=== PATIENT | female | born 1940 | race Caucasian/White ===

== ENCOUNTER 2018-08-17 13:21 | Inpatient (IN) ==
--- NOTE | 2018-08-17 14:33 | Diag Imaging Result Doc PS360 ---
EXAM: XRAY PELVIS W/HIP 2-3VW RT HISTORY: FALL, R HIP PAIN TECHNIQUE: Pelvis and right hip, three views COMPARISON: None. FINDINGS: There is a subcapital right femoral neck fracture with compaction and slight angulation. The femoral head remains in the acetabulum. IMPRESSION: Subcapital femoral neck fracture. Electronically signed by Tom Fishman 08/17/2018 2:30 PM
--- NOTE | 2018-08-17 14:56 | EKG Report ---
Test Performed on : 08/17/2018 1:54:58 PM Test Reason : possible ekg changes Blood Pressure : / mmHG Vent. Rate : 069 BPM Atrial Rate : 069 BPM P-R Int : 146 ms QRS Dur : 132 ms QT Int : 442 ms P-R-T Axes : -06 052 -61 degrees QTc Int : 473 ms Normal sinus rhythm. Nonspecific intraventricular block Cannot rule out Septal infarct (cited on or before 26-APR-2013) T wave abnormality, consider inferolateral ischemia Abnormal ECG When compared with ECG of 26-APR-2013 01:55, Significant changes have occurred Unconfirmed Result
--- NOTE | 2018-08-17 15:46 | PROVIDER DOCUMENTATION ---
This chart was entered by Lisa Barry Scribe, acting as scribe for Jeremy Avelar MD. HPI-General Adult - General Chief Complaint: Hip Pain Stated Complaint: fall Time Seen by Provider: 08/17/18 13:30 Source: patient Allergies/Adverse Reactions: Patient Allergies Allergy/AdvReac Type Severity Reaction Status Date / Time aspirin Allergy Severe Unknown Verified 08/17/18 13:27 cefaclor [From Ceclor] Allergy Severe RASH Verified 08/17/18 13:27 cephalexin monohydrate * Allergy Severe RASH Verified 08/17/18 13:27 [From Keflex] clarithromycin [From Biaxin] Allergy Severe RASH Verified 08/17/18 13:27 esomeprazole magnesium * Allergy Severe Unknown Verified 08/17/18 13:27 [From Nexium] levofloxacin [From Levaquin] Allergy Severe RASH Verified 08/17/18 13:27 Penicillins Allergy Severe ANAPHYLAXIS Verified 08/17/18 13:27 sulfamethoxazole Allergy Severe SWELLING Verified 08/17/18 13:27 [From Bactrim] trimethoprim [From Bactrim] Allergy Severe SWELLING Verified 08/17/18 13:27 zafirlukast [From Accolate] Allergy Severe Unknown Verified 08/17/18 13:27 esomeprazole [From Nexium] Allergy Unknown Verified 08/17/18 13:27 Home Medications: Home Medication List Medication Instructions Recorded Confirmed Last Taken Type Albuterol Sulfate Inhaler 2 puff INH PRN PRN 04/26/13 04/26/13 04/25/13 08:00 History [Ventolin Hfa] Amlodipine [Norvasc] 5 mg PO QHS 04/26/13 04/26/13 04/24/13 22:00 History Azelastine 137 Mcg Nasal Dexter 2 spray ESTRELLITA BID 04/26/13 04/26/13 04/25/13 08:00 History [Astelin Nasal Dexter] Ca Citrate/Mgox/Vit D3/B6/Min 1 each PO DAILY 04/26/13 04/26/13 04/25/13 08:00 History [Citracal Plus Tablet] Cetirizine HCl [Zyrtec] 10 mg PO QHS 04/26/13 04/26/13 04/24/13 22:00 History Cholecalciferol (Vitamin D3) 800 unit PO DAILY 04/26/13 04/26/13 04/25/13 08:00 History [Vitamin D3] Cyclobenzaprine HCl [Flexeril] 10 mg PO TID PRN #21 tablet 04/26/13 Unknown Rx Docusate Sodium [Colace] 100 mg PO DAILY 04/26/13 04/26/13 04/25/13 22:00 History Hydrocodone/Acetaminophen [Vicodin 1 each PO TID #21 tablet 04/26/13 Unknown Rx 5-300 mg Tablet] Lansoprazole [Prevacid] 15 mg PO QAM 04/26/13 04/26/13 04/25/13 08:00 History Mometasone Nasal Dexter [Nasonex 2 spray ESTRELLITA QHS 04/26/13 04/26/13 04/24/13 22:00 History Nasal Dexter] Montelukast [Singulair] 10 mg PO QHS 04/26/13 04/26/13 04/24/13 22:00 History Multivitamins/Minerals [Centrum 1 each PO DAILY 04/26/13 04/26/13 04/25/13 08:00 History Silver] Ranitidine [Zantac] 150 mg PO BID 04/26/13 04/26/13 04/25/13 08:00 History - History of Present Illness -Gen Adult Nature of Presenting Problems: 78 yof presents to ED c/o of pain in right hip and abrasion on right elbow after a fall today. Pt states she went to turn and then just 'went down'. Pt denies dizziness, chest pain, hitting head or LOC. Pt has hx of HTN, Asthma and thyroid disorder. Location of Pain/Injury: reports: pelvis (right), other (right elbow) Pain Radiation: reports: no radiation Quality of Pain: reports: sharp, throbbing Severity: reports: moderate Onset/Duration: reports: just prior to arrival Timing: reports: still present Modifying Factors: improves with: nothing Review of Systems - Adult - REVIEW OF SYSTEMS - ADULT Constitutional: reports: see HPI. denies: chills, fever, fatique Eyes: reports: no symptoms reported Ears, Nose, Mouth & Throat: reports: no symptoms reported Cardiovascular: reports: no symptoms reported Respiratory: reports: no symptoms reported Gastrointestinal: reports: no symptoms reported Genitourinary: reports: no symptoms reported Musculoskeletal: reports: see HPI, joint pain (right hip). denies: neck pain Integumentary: reports: see HPI, other (abrasion right elbow). denies: itching, rash Neurological: reports: no symptoms reported Psychiatric: reports: no symptoms reported Endocrine: reports: no symptoms reported Hematologic/Lymphatic: reports: no symptoms reported Allergic/Immunologic: reports: no symptoms reported All Other Systems: Reviewed and Negative Past History - Adult - PAST MEDICAL HISTORY-ADULT Review of Records: reports: Old Records Reviewed, Nursing Assessment Review, Medications Reviewed, Social history reviewed & non-contributory. Major Childhood Illnesses: reports: denies history Cardiovascular: reports: denies history Respiratory: reports: denies history Gastrointestinal: reports: denies history Obstetrical/Gynecological: reports: denies history Genitourinary: reports: denies history Musculoskeletal: reports: denies history Neurological: reports: denies history Endocrine/Immune: reports: denies history Other Conditions: reports: denies history - IMMUNIZATION STATUS Childhood Immunizations: See Nurse Assessment Flu Vaccine: See Nurse Assessment - FAMILY HISTORY Family History: reviewed, not pertinent Physical Exam-General - PHYSICAL EXAM-ADULT Initial Vital Signs Reviewed: Yes - CONSTITUTIONAL General Appearance: appears well, alert. negative: anxious, combative - EYES Eyes: PERRL/EOMI, pink conjunctivae. negative: photophobia - HEAD, EARS, NOSE, MOUTH & THROAT HENMT: moist mucous membranes, normal ENT inspection. negative: frontal tenderness, maxillary tenderness - NECK Neck: non-tender, full range of motion, supple, normal inspection. negative: Brudzinski's sign, carotid bruit - RESPIRATORY Respiratory: chest non-tender, lungs clear, normal breath sounds, no pleuratic chest pain, no respiratory distress, no accessory muscle use. negative: crackles, rales, rhonchi - CARDIOVASCULAR Cardiovascular: normal peripheral pulses, regular rate, rhythm, no edema, no gallop, no JVD, no murmur. negative: bradycardia, tachycardia - GASTROINTESTINAL (ABDOMEN) Abdominal Exam: normal bowel sounds, soft. negative: rigid, rebound, tenderness - MUSCULOSKELETAL Back Exam: normal inspection Extremity: tenderness (right hip), other (painful ROM right hip) - SKIN Integumentary: normal color, normal turgor, warm/dry, abrasion(s) (right extension of elbow). negative: jaundice - PSYCHIATRIC Psych/Mental Status: normal mood/affect, normal thought content, normal thought process, oriented x 3. negative: anxious Progress - PLAN OF CARE/RESULTS Progress/Plan/Lab Results: Vital Signs - 8 hr 08/17/18 13:21 Temperature 98.4 F Pulse Rate 69 Respiratory Rate 20 Blood Pressure 184/82 O2 Sat by Pulse Oximetry 96 Orders Category Date Time Status XRAY PELVIS W/HIP 2-3VW RT [RAD] Stat Exams 08/17/18 13:37 Ordered - EKG 1 Time of EKG reading by physician:: 13:58 EKG Read and Signed by:: Jeremy Avelar EKG Interpretation (*Must complete 3 of following elements*): Abnormal Rate: 69 Rhythm: normal sinus QRS: normal ST Wave: non-specific ST changes - XRAY 1 XRAY: Right XRAY Study: Pelvis Impression: See EMR Report (IMPRESSION: Subcapital femoral neck fracture. Electronically signed by Tom Fishman 08/17/2018 2:30 PM) - CONSULTS/PCP/HOSPITALIST Notification #1 *Consult/PCP/Hospitalist*: DR DE JESUS Time Discussed: 15:30 Consult Disposition: Admit #2 Consult: FR DR GUTIERREZ Time Discussed: 15:45 Consult Disposition: other (FOR REPAIR) Departure - Departure Date of Disposition Decision: 08/17/18 Time of Disposition Decision: 15:45 DIAGNOSIS: Hip fracture, right, Abrasion of right elbow, initial encounter Disposition: ADMITTED INPATIENT 09 Certified Medical Emergency: Emergent Condition: Stable Referrals and Follow-Ups: None,PCP [Primary Care Provider] - - Critical Care Note This patient required my direct & personal management of CC.: No Attestation - Physician/ TAZ Attestation Patient care was provided by Advanced Practice Provider:: No The physician spent face to face time with patient:: Yes Advanced Practice Provider documentation review:: Supervising physician onsite and consulted in the evaluation and care of this patient. The physician did have a face to face encounter with the patient. This chart was documented by the indicated scribe, (Lisa Barry Scribe) and accurately reflects the services I performed and decisions made by me, Jeremy Avelar MD, as attested by the provider's signature.
[2018-08-17] MEDS ORDERED: NS 1,000 ML IV ONE (16:20)
[2018-08-17] MEDS ORDERED: MORPHINE IV ONE (16:20)
[2018-08-17] MEDS ORDERED: ZOFRAN IV ONE (16:20)
[2018-08-17] MEDS ORDERED: ZOFRAN IV PRN (18:19)
[2018-08-17] MEDS: NORVASC PO SCH (19:35)
[2018-08-17 19:36] LABS: BASO# 0.02 X1000 (0.0-0.2); BASO% 0.1 % (0.0-0.8); EOS# 0.07 X1000 (0.0-0.7); EOS% 0.4 % (0.0-10.0); HEMATOCRIT 39.6 % (37.0-47.0); IMM GRAN# 0.06 X1000 (0.0-0.04); IMM GRAN% 0.4 % (0.0-0.5); LYMPH# 1.35 X1000 (1.2-3.4); LYMPH% 8.6 % (20.5-51.1); MCHC 32.8 g/dL (33-37); MCV 91.5 FL (81-99); MONO# 1.14 X1000 (0.11-0.59); MONO% 7.3 % (1.7-9.3); MPV 10.8 FL (7.4-10.4); NEUT# 13.03 X1000 (1.4-6.5); NEUT% 83.2 % (42.2-75.2); PLT 215 X1000 (130-400); RBC 4.33 XMIL (4.2-5.4); RDW 12.9 % (11.5-14.5); WBC 15.67 X1000 (4.8-10.8)
[2018-08-17 19:42] LABS: INR 1.01; PROTIME 13.8 Seconds (11.0-16.0)
[2018-08-17 19:45] LABS: AGAP 9; ALBUMIN 3.9 g/dL (3.5-5.0); ALKALINE PHOSPHATASE 103 U/L (32-104); BUN 9 mg/dL (8-22); CALCIUM 10.3 mg/dL (8.8-10.2); CHLORIDE 105 mmol/L (98-107); COSMO 284; CREATININE 0.4 mg/dL (0.5-0.9); ESTIMATED GFR > 60; GLUCOSE 102 mg/dL (70-104); GOT 17 U/L (10-30); GPT 12 U/L (10-36); MAGNESIUM 1.7 mg/dL (1.5-2.7); POTASSIUM 3.5 mmol/L (3.5-5.1); SODIUM 143 mmol/L (136-145); TCO2 28 mmol/L (25-35); TOTAL PROTEIN 6.7 g/dL (6.3-8.3)
--- NOTE | 2018-08-17 20:00 | HISTORY AND PHYSICAL ---
PRIMARY CARE PHYSICIAN: Aureliano Feng MD CHIEF COMPLAINT: Fall with right hip pain. HISTORY OF PRESENT ILLNESS: Ms. Kapadia is a 78-year-old female with a history of asthma, hypothyroidism and hypertension, also with a left bundle branch block and recent positive stress test. She presents with a mechanical [id number] today while trying to walk into her house. She was checking the mail, and on her way back tripped and fell. She did not pass out, lose consciousness or hit her head. She immediately started having right hip pain and was brought to the ER. Imaging here revealed a right hip fracture. Labs are currently pending. She is hemodynamically stable. Of note, she has had some chest pain over the past weeks and months. She has been evaluated by Cardiology and actually has a CTA scheduled soon, but a stress test was done last month by Dr. Castro, and it did show the possibility of a positive exam. Currently she denies chest pain or syncope. No active dyspnea. She is hemodynamically stable and will be admitted and eventually transferred to [facility] when a room becomes available. Orthopaedics has been consulted and is aware of her admission. PAST MEDICAL HISTORY: 1. Recent positive stress test. 2. Left bundle branch block. 3. Hypertension. 4. Hypothyroidism. 5. B12 deficiency. PAST SURGICAL HISTORY: Cataract surgery, hysterectomy, sinus surgery, appendectomy, tonsillectomy, breast biopsy. SOCIAL HISTORY: Denies tobacco, alcohol or drug use. She is single and lives alone. Has strong support from friends that live next to her. FAMILY HISTORY: Both parents of heart disease. Mother diagnosed at an early age. ALLERGIES: Penicillin, Bactrim, Biaxin, Accolate, Keflex, Ceclor, Levaquin, aspirin, Nexium. HOME MEDICATIONS: 1. Norvasc 5 mg daily. 2. B12 shot once a month. 3. Synthroid 75 mcg before breakfast. 4. Albuterol HFA 2 puffs every 4 hours as needed. 5. Arcapta Neohaler 75 mcg once daily. 6. Fluticasone 1 spray in each nostril once a day. 7. Singulair 10 mg at bedtime. 8. Claritin 10 mg daily for allergies. REVIEW OF SYSTEMS: A 14-point review of systems is obtained and found to be negative with the exception of the HPI. PHYSICAL EXAMINATION: VITAL SIGNS: Blood pressure 116/87, heart rate 80, respiratory rate 20, O2 saturation 96% on nasal cannula, temperature 97.8. GENERAL: This is a well-developed, well-nourished female lying in the hospital bed in no acute distress. NEUROLOGICAL: Awake, alert and oriented. Follows commands. No focal deficits. HEENT: Head is atraumatic and normocephalic. Pupils are equal, round and reactive to light. Oral mucosa is a bit dry. NECK: Trachea is midline. There is no JVD. CHEST: Clear to auscultation. CV: Regular rate and rhythm. S1 and S2 are noted. There are no murmurs. GI: Soft, nondistended, nontender. Bowel sounds positive. EXTREMITIES: No edema. Pulses 1+ bilaterally. DIAGNOSTIC DATA: Hip and pelvis x-rays shows a subcapital femoral neck fracture on the right. EKG: Left bundle branch block. LABORATORY DATA: Pending. ASSESSMENT/PLAN: 1. Subcapital right hip fracture: Orthopaedics is aware of her admission. We will admit her to [facility] because there are no beds at [place]. Once there is a bed, she will be transferred over there. We will consult Cardiology for cardiac clearance, as she has had a recent positive stress test. Will continue pain medication and Tarango catheter and consult social media job titles 2. Recent positive stress test and left bundle branch block: She is followed by Dr. Castro. We have consulted him. We will monitor her on telemetry. She denies any chest pain or syncope. 3. Hypothyroidism: Stable. Continue her home medicines. 4. Asthma: Stable. No dyspnea. Continue home medications. 5. Hypertension: Stable. Continue home medications. 6. Further recommendations to follow. Dictated by MARTIR Martin for Alfonso Motley MD cc: MARTIR Martin MD Timothy P. Weirich, MD
[2018-08-17] MEDS ORDERED: LOVENOX SUBQ ONE (20:35)
--- NOTE | 2018-08-18 00:19 | HISTORY AND PHYSICAL ---
ADDENDUM: Patient seen and examined by myself. Full note dictated and discussed with nurse practitioner. Patient is a very pleasant 78-year-old female who presented to the hospital after falling at home. She was subsequently diagnosed with a subcapital right hip fracture. She has recently had a positive stress test with left bundle branch block. Dr. Castro had told the patient that she would need to have a coronary CT. She currently denies any chest pain, palpitations, any syncope. We will attempt to do the CT in the a.m., if possible. If not, certainly feel as though given her minimal risk factors, that she should proceed with a surgical intervention. We have consulted Orthopedics about her hip fracture. cc: Alfonso Motley MD
[2018-08-18] MEDS: MORPHINE IV PRN ×3 (00:24→16:05)
[2018-08-18 06:31] LABS: HEMATOCRIT 37.8 % (37.0-47.0); HEMOGLOBIN 12.2 g/dL (12.0-16.0); MCH 30.4 PG (27-31); MCHC 32.3 g/dL (33-37); MCV 94.3 FL (81-99); MPV 10.8 FL (7.4-10.4); RBC 4.01 XMIL (4.2-5.4); RDW 13.1 % (11.5-14.5); WBC 12.66 X1000 (4.8-10.8)
[2018-08-18 07:07] LABS: AGAP 11; BUN 7 mg/dL (8-22); CHLORIDE 103 mmol/L (98-107); COSMO 278; CREATININE 0.6 mg/dL (0.5-0.9); ESTIMATED GFR > 60; GLUCOSE 105 mg/dL (70-104); POTASSIUM 3.6 mmol/L (3.5-5.1); SODIUM 140 mmol/L (136-145); TCO2 26 mmol/L (25-35)
[2018-08-18] MEDS: NORVASC PO SCH (08:48)
[2018-08-18] MEDS ORDERED: NORVASC PO SCH (09:00)
--- NOTE | 2018-08-18 09:10 | PROGRESS NOTE ---
DATE: 08/18/2018 SUBJECTIVE: The patient fell yesterday, suffering a fractured right hip. She was admitted to [facility], and then transferred over here overnight. She states that she is having right hip pain, but is generally reasonably controlled if she remains motionless. She states that she has had a little bit of a wet cough and some occasional wheezing since being hospitalized. She vomited 1 time after receiving her initial dose of morphine in the emergency room at [facility]. She has since been a bit nauseated, but has not vomited again. OBJECTIVE: Vital Signs: Temperature 99.1, pulse 67, respirations 18, blood pressure 172/63, and 99% saturated on 2 L nasal cannula. Lungs: The patient had a faint end-expiratory wheeze on the left upper lobe region. She is moving air well. She has a wet-sounding cough. Cardiovascular: Regular. Extremities: No peripheral edema. LABORATORY DATA: White cell count is 12.6, hematocrit is 37.8. Serum electrolytes were grossly normal. ASSESSMENT AND PLAN: 1. The patient's right hip fracture is being handled by Dr. Hinds, who saw the patient in consultation this morning. We will continue pain control measures, and she will need a rehabilitation bed at the time of discharge. 2. The patient has a history of positive stress test, and is scheduled for a CT angio of her heart, which has not yet taken place. Dr. Castro has been consulted, and we will gather his opinion preoperatively, and then reschedule some of the other testing on an outpatient basis or as appropriate. 3. The patient has long-standing severe asthma, which is generally allergically mediated. She is on a lot of medication for this, but has done well over the last several years. Today, she is wheezing a bit. I do not think this represents aspiration. We will monitor her for signs of fever, and start her on breathing treatments immediately, with oxygen support as necessary. 4. We will continue to monitor the patient's blood pressure as it was a little bit elevated today. cc: Aureliano Feng MD
[2018-08-18] MEDS: DUONEB (A & A) INH SCH ×3 (10:10→20:25)
--- NOTE | 2018-08-18 13:16 | CONSULTATION ---
DATE OF CONSULTATION: 08/18/2018 REASON FOR CONSULTATION: Right hip pain after fall. HISTORY OF PRESENT ILLNESS: Ms. Kapadia is a 78-year-old female with a past medical history of asthma, hypothyroidism, and hypertension with a left bundle branch block and a recent positive stress test. She presented to the [facility] Emergency Room after she was checking the mail at her home and tripped. She did fall on her right side and had a pretty severe pain onto the right hip as well as both of her elbows. She states she did not lose consciousness, and does not recall injuring the head. She was transferred to the [facility] Emergency Department where an x-ray showed a right hip fracture. She was hemodynamically stable on arrival. Recently, she has been having some chest pain and had a stress test completed last week. She does have a CT angiogram pending. On my exam, she denied chest pain, syncope, lightheadedness, or shortness of breath. She denies chills, fever, nausea, or vomiting. Orthopedics has been consulted for the right hip fracture. PAST MEDICAL HISTORY: 1. Recent positive stress test. 2. Left bundle branch block. 3. Primary essential hypertension. 4. Hypothyroidism. 5. Vitamin B12 deficiency. 6. Asthma. PAST SURGICAL HISTORY: 1. Cataract. 2. Hysterectomy. 3. Sinus surgery. 4. Appendectomy. 5. Tonsillectomy. 6. Breast biopsy. SOCIAL HISTORY: She does live at home alone. She has a good group of friends that live near her. She denies tobacco, alcohol, or illicit drug use. FAMILY HISTORY: Noncontributory. ALLERGIES: 1. Penicillin. 2. Bactrim. 3. Biaxin. 4. Accolade. 5. Keflex. 6. Ceclor. 7. Levaquin. 8. Aspirin. 9. Nexium. HOME MEDICATIONS: 1. Norvasc 5 mg p.o. daily. 2. B12 shot once a month. 3. Synthroid 75 mcg before breakfast. 4. Albuterol 2 puffs every 4 hours as needed. 5. Arcapta Neohaler 75 mcg once daily. 6. Fluconazole 1 spray each nostril once a day. 7. Singular 10 mg at bedtime. 8. Claritin 10 mg daily for allergies. REVIEW OF SYSTEMS: A 10 point review of systems was completed and negative except what was mentioned before in the history of present illness. PHYSICAL EXAMINATION: Current Vital Signs: Temperature 99.1 degrees, pulse 67, respirations 18, and blood pressure 172/63. She is 99% on 2 L nasal cannula. General: This is a well-nourished 78-year-old female in no immediate distress. Neurological: She is alert and oriented x3. She has no focal deficits. HEENT: Head is atraumatic and normocephalic. Pupils are equal, round, and reactive to light. Cardiovascular: Regular rate and rhythm. Pulmonary: Breathing is even and nonlabored. Abdomen: Nondistended. Extremities: On right lower extremity exam, she does have significant ecchymoses around the hip. She does have tenderness to palpation over the hip. She does have good sensation in lower extremity. She had a 2+ pedal pulse. She is able to dorsi and plantar flex the foot. She is short and externally rotated. Right upper extremity exam, she does have a skin tear onto the elbow. She has full range of motion at the elbow without any pain. There is no surrounding erythema or drainage. IMAGING: Pelvis and right hip does show a subcapital femoral neck fracture. ASSESSMENT: Right subcapital femoral neck fracture. PLAN: Dr. Hinds has already discussed with family surgical fixation. We will plan to do a closed reduction and percutaneous pinning of the right hip. We do want to obtain cardiac clearance with her recent cardiac history. After she can be examined by Cardiology, we will hope to get this done on Wednesday with their approval. She is not currently on any blood thinners. We will make her NPO at midnight tonight and go and get consents in preparation for surgery tomorrow. Dr. Hinds has discussed risks and benefits with the patient, and her friend in the room with her. Risks include, but are not limited to, damage to nerves, arteries, and veins, malunion, nonunion, hardware related issues, DVT, infection, continued pain, and risk of general anesthesia. The patient understands and wished to proceed. Dictated by MARTIR Rios for Jeremy Hinds MD cc: MARTIR Rios MD Timothy P. Weirich, MD
[2018-08-18] MEDS: FLONASE NAS SCH (15:32)
[2018-08-18] MEDS: SYNTHROID PO SCH (15:32)
[2018-08-18] MEDS: PATIENT'S OWN MED INH SCH (15:33)
--- NOTE | 2018-08-18 18:14 | CARDIOLOGY CONSULTATION ---
DATE: 08/18/2018 REQUESTED PHYSICIAN: Hospitalist Service. REASON FOR CONSULT: Patient with abnormal ECG. Preoperative cardiac evaluation History of abnormal stress test. Chief complaint: right hip pain. HISTORY: Mrs. Kapadia is a very pleasant, 78-year-old female, patient of mine and Dr. Ryan Feng, who presented to the emergency room yesterday at about 1:30 p.m. after suffering an accidental fall in her driveway. The details of the fall are really unknown. The patient does not recall exactly what went on. She may have just slipped on the pavement. Her next door neighbor was right there with her, just few feet farther, and she realized what had happened and they called the ambulance. In the ER they did the appropriate x-rays which indicated a subcapital femoral neck fracture on the right side. At this time the patient is pain free. The patient has been admitted for evaluation and management of that condition. Dr. Hinds from Orthopedic Surgery has been consulted. They are planning on performing open reduction internal fixation in the morning. The patient is not having any chest pain or dyspnea. No swelling. Her past history is basically positive for the finding of an abnormal ECG which led to the performance of a stress test on July 18 which suggested the possibility of inducible ischemia of the anteroseptal segment of the left ventricle in a relatively limited area. We were planning on doing a CT of the heart for further evaluation and that was going to be done August 30. However, the patient has just suffered this accident. PAST MEDICAL HISTORY: Hypertension, hypothyroidism, hyperlipidemia, COPD, asthma. She has experienced palpitations in the past. PAST SURGICAL HISTORY: Sinus surgery, appendectomy, hysterectomy, cataract extraction, foot surgery, tonsillectomy, and breast biopsy. SOCIAL HISTORY: She is a . She is living by herself. She has no children. Never been a smoker nor drinker. She worked for [employer] for 30 years. She was a single child. FAMILY HISTORY: Parents of noncardiac related issues. No family history of heart disease. REVIEW OF SYSTEMS: The patient has been able to care for herself. In fact, yesterday she went with her friend to have hair done. She has not noticed any major decline in her ability to perform activities of daily living. HOME MEDICATIONS: Listed include amlodipine 5 mg daily, levothyroxine 75 mcg daily, albuterol inhaler, Arcapta Neohaler 75 mcg capsule once daily, fluticasone propionate, montelukast sodium, Claritin 10 mg daily, and B12 compliance injection once a month. ALLERGIES: Penicillin, Bactrim, Biaxin, Accolate, Keflex, Ceclor, Levaquin, aspirin, and Nexium. PHYSICAL EXAMINATION: Vital signs: Blood pressure at this time is 150/55, temperature 99.1 degrees, pulse 71, respirations 18. General: She is awake, alert, oriented, in no distress. HEENT: Unremarkable. Chest: Clear to auscultation and percussion. Heart: Sounds regular and rhythmic. I do not hear a gallop or murmur. Abdomen: Nontender. Extremities: Deformity of the right hip with some bruises. Excellent distal pulses. Neurologic: Follows commands. Moves 4 extremities. BLOOD WORK: White cell count today is 12,360, hemoglobin 12.2, hematocrit 37.8. Sodium 140, potassium 3.6, BUN 7, creatinine 0.6. Troponin is normal. CK is normal. Her EKG showed sinus rhythm with a left bundle branch block and basically has not changed when compared to the tracings that we have at the office. IMPRESSION: 1. Patient with abnormal ECG, left bundle branch block. 2. Reported mildly abnormal nuclear stress test July 2018 suggesting inducible ischemia of limited area of the anteroseptal segment of the left ventricle. 3. Chronic obstructive pulmonary disease, asthma. 4. Hyperlipidemia. 5. Hypothyroidism. 6. Subcapital fracture of the right hip. RECOMMENDATIONS: At this time, from cardiology viewpoint, there is no contraindication to proceeding with surgery to fix the right hip fracture. The patient may be at a slightly increased risk. However, given the fact that she is not in obvious heart failure nor having any obvious ischemic cardiac event in the recent past, her risk should be reasonable. I discussed this with the patient's friend and hopefully they will proceed with the surgery on August 19. We will be very happy to follow up on her case. cc: MD Aureliano Lima MD MTDD
[2018-08-18] MEDS: SINGULAIR PO SCH (22:26)
[2018-08-18] MEDS: TYLENOL PO PRN (22:26)
[2018-08-19] MEDS: MORPHINE IV PRN ×2 (05:05→09:31)
[2018-08-19 07:24] LABS: AGAP 10; BUN 13 mg/dL (8-22); CALCIUM 9.9 mg/dL (8.8-10.2); CHLORIDE 102 mmol/L (98-107); COSMO 281; CREATININE 0.8 mg/dL (0.5-0.9); ESTIMATED GFR > 60; GLUCOSE 132 mg/dL (70-104); POTASSIUM 4.6 mmol/L (3.5-5.1); SODIUM 140 mmol/L (136-145); TCO2 28 mmol/L (25-35)
[2018-08-19] MEDS: DUONEB (A & A) INH SCH ×3 (08:05→20:25)
[2018-08-19 08:06] LABS: HEMATOCRIT 39.7 % (37.0-47.0); HEMOGLOBIN 12.8 g/dL (12.0-16.0); MCH 30.5 PG (27-31); MCHC 32.2 g/dL (33-37); MCV 94.7 FL (81-99); RBC 4.19 XMIL (4.2-5.4); RDW 13.3 % (11.5-14.5); WBC 22.25 X1000 (4.8-10.8)
[2018-08-19] MEDS: SYNTHROID PO SCH (09:24)
[2018-08-19] MEDS: NORVASC PO SCH (09:24)
[2018-08-19] MEDS: PATIENT'S OWN MED INH SCH (09:26)
--- NOTE | 2018-08-19 09:55 | PROGRESS NOTE ---
DATE: 08/19/2018 SUBJECTIVE: Yesterday, orthopedic consultation was obtained and they desired to try and pin her subcapital femur fracture. They needed Cardiology clearance. That consult was also obtained and clearance was obtained for surgery today. The patient did not receive breathing treatments as ordered yesterday morning which is unfortunate. She also spiked a fever to 102 yesterday, and blood cultures were drawn. Empiric antibiotics were not started. Upon review of the patient's stay in [place], she was instrumented no less than 5 times in an attempt to place a Tarango catheter. They even placed one and left it in, but got no return and eventually pulled it out with the catheter tip covered in blood. Also today, the patient's white cell count was up although her fever is back down to normal. OBJECTIVE: Vital signs: 98.5, 74, 20, 137/56. T-max was 102.1 degrees at 7:00 last night. Lungs: Clear. She is not wheezing. Cardiovascular: Regular. She is not tachycardic. Abdomen: Bowel sounds are present. Extremities: No peripheral edema. Neuropsych: The patient is alert, oriented, conversive and appropriate. ASSESSMENT AND PLAN: 1. The patient will undergo pinning of the right hip today per Dr. Hinds in the OR. We will need rehabilitation following her surgery. I expect this will be next week. Our preferred choices are [facility] and [facility]. We will see if we can obtain those services of 1 of those 2 places. 2. The patient has been cleared for surgery by Cardiology Dr. Castro who has been following. 3. The patient has a long-standing moderate to severe persistent asthma. She is breathing well at present, and we will need to continue to monitor her respiratory status. 4. The patient's fever from yesterday is concerning as well as her white count blossoming to 22,000. I am going to start empiric gentamicin because she is allergic to every antibiotic on the planet. We will need to re-evaluate her febrile status and white count as the weekend progresses. If the empiric antibiotics are deemed unnecessary, we will discontinue at the soonest possible time. cc: Aureliano Feng MD
[2018-08-19] MEDS ORDERED: SODIUM CHLORIDE 0.9% 20 ML ONE (10:04)
[2018-08-19] MEDS ORDERED: NEO-SYNEPHRINE ONE ×2 (10:04→14:08)
[2018-08-19] MEDS: GENTAMICIN 100 MG/NS 100 MG/100 ML IVPB IV SCH ×2 (10:34→18:18)
--- NOTE | 2018-08-19 11:28 | PROGRESS NOTE ---
DATE: 08/19/2018 CLINICAL HISTORY: The patient is a 78-year-old female who is a couple days status post fall sustaining a right femoral neck fracture. She was admitted to the hospital and has obtained preoperative cardiac clearance. PHYSICAL EXAMINATION: Patient is awake, alert, and cooperative with exam. Right lower extremity has tenderness to palpation on the hip. Calf is soft. She has active dorsiflexion and plantar flexion. She is grossly neurovascularly intact. IMPRESSION: Right femoral neck fracture. PLAN: At this point, recommendation to proceed with percutaneous screw fixation of her right hip. Risks and benefits have been discussed. All questions were answered. The patient and family agrees with treatment plan. cc: MD Aureliano Miller MD
[2018-08-19] MEDS ORDERED: FENTANYL ONE (11:55)
[2018-08-19] MEDS ORDERED: DIPRIVAN 1% ONE (11:55)
[2018-08-19] MEDS ORDERED: XYLOCAINE-MPF 2% ONE (11:56)
[2018-08-19] MEDS ORDERED: VANCOMYCIN 1 GM/NS 1 GM/250 ML IVPB ONE (12:59)
[2018-08-19] MEDS ORDERED: ZOFRAN ONE (13:19)
[2018-08-19] MEDS ORDERED: DECADRON ONE (13:19)
[2018-08-19] MEDS ORDERED: ROBINUL ONE (13:25)
[2018-08-19] MEDS ORDERED: MORPHINE IV PRN (14:46)
[2018-08-19] MEDS ORDERED: MILK OF MAGNESIA PO PRN (14:46)
[2018-08-19] MEDS ORDERED: ZOFRAN IV PRN (14:46)
[2018-08-19] MEDS ORDERED: HALDOL IV PRN (15:00)
[2018-08-19] MEDS: DILAUDID ONE ×2 (15:01→15:04)
[2018-08-19] MEDS: FLONASE NAS SCH (15:26)
[2018-08-19] MEDS: OXY IR PO PRN (16:46)
[2018-08-19] MEDS: TYLENOL PO PRN (16:47)
[2018-08-19] MEDS: TYLENOL PO SCH ×2 (17:01→22:14)
--- NOTE | 2018-08-19 18:16 | OPERATIVE NOTE ---
PROCEDURE DATE: POSTOPERATIVE DIAGNOSIS: Right impacted femoral neck fracture. POSTOPERATIVE DIAGNOSIS: Right impacted femoral neck fracture. PROCEDURE PERFORMED: Screw fixation right femoral neck. SURGEON: Jeremy Hinds MD. FICTION AND NONFICTION AUTHOR: CLARA Rocha. ANESTHESIA: General. IV FLUIDS: 1000 mL lactated Ringer's. ESTIMATED BLOOD LOSS: 5 mL. COMPLICATIONS: None. INDICATIONS: The patient is a pleasant 78-year-old female who is 2 days status post fall sustaining a right femoral neck fracture. She is admitted to the hospital. After obtaining preoperative medical clearance, recommendation to proceed with screw fixation right femoral neck was offered. Risks and benefits of surgery were explained, including the risks of anesthesia, , bleeding, infection, failure to relieve pain, postoperative stiffness, nerve injury, blood clots, and other imponderables, all questions answered, the patient and family wished to proceed with surgery. DESCRIPTION OF PROCEDURE: The patient was taken to the operating room and placed supine on the fracture table. Right lower extremity good alignment of the fracture was confirmed with C-arm visualization. The right lower extremity was subsequently prepped and draped in usual sterile fashion. A small incision was placed along the lateral proximal femur. This was carried through the fascia odilia. A guide pin was then placed at the level of the lesser trochanter just superior to the level of the lesser trochanter and advanced in the inferior aspect of the femoral neck and head across the fracture site. Using an inverted triangle, 2 parallel pins were placed superior to this as well. After [*]had good alignment and good position of the fracture, good positioning of the guide pins. The near cortex was reamed. Two 90 mm partially threaded 7.3 cannulated screws were placed as well as a 185 mm. Good purchase was obtained on each screw. Final C-arm visualization showed good alignment of the fracture and good position of the hardware. The wound was copiously irrigated. #1 Vicryl was used to repair the deep fascia followed by 2-0 Vicryl and skin tomi. Adaptic, [*]on the right lower extremity. The patient tolerated the procedure well with no complications. Transferred to recovery room in stable condition. cc: MD Aureliano Miller MD
[2018-08-19 20:22] LABS: URINE SOURCE CATH
[2018-08-19 20:31] LABS: BILIRUBIN URINE NEGATIVE (NEGATIVE); BLOOD URINE NEGATIVE (NEGATIVE); COLOR ORANGE; GLUCOSE URINE NEGATIVE (NEGATIVE); KETONE URINE 20 mg/dL (NEGATIVE); LEUKOCYTES URINE NEGATIVE (NEGATIVE); NITRITE URINE NEGATIVE (NEGATIVE); PROTEIN URINE 50 mg/dL (NEGATIVE); SP GRAVITY URINE 1.018; TURBIDITY URINE HAZY (CLEAR); UROBILINOGEN URINE NORMAL (NORMAL)
[2018-08-19 20:57] LABS: UR EPITHELIAL CELLS <10 /HPF (<10); URINE BACTERIA NEGATIVE /HPF; URINE RBC TNTC /HPF (<10); URINE WBC <10 /HPF (<10)
[2018-08-19 21:04] LABS: URINE YEAST NONE SEEN
[2018-08-19 21:05] LABS: URINE CASTS GRANULAR PRESENT; URINE CRYSTALS CA OXALATE PRESENT; URINE SMALL ROUND CELLS NONE SEEN
[2018-08-19] MEDS: COLACE PO SCH (22:12)
[2018-08-19] MEDS: SINGULAIR PO SCH (22:12)
[2018-08-19] MEDS: PERIDEX MT SCH (22:13)
[2018-08-20] MEDS: VANCOMYCIN 1 GM/NS 1 GM/250 ML IVPB IV SCH ×2 (00:12→16:04)
[2018-08-20] MEDS: GENTAMICIN 100 MG/NS 100 MG/100 ML IVPB IV SCH ×3 (02:44→20:55)
[2018-08-20] MEDS: DILAUDID ONE (02:49)
[2018-08-20] MEDS: TYLENOL PO SCH ×3 (05:57→14:44)
[2018-08-20 07:32] LABS: HEMATOCRIT 32.6 % (37.0-47.0); HEMOGLOBIN 10.4 g/dL (12.0-16.0); MCH 30.1 PG (27-31); MCHC 31.9 g/dL (33-37); MCV 94.2 FL (81-99); MPV 11.1 FL (7.4-10.4); RBC 3.46 XMIL (4.2-5.4); RDW 13.1 % (11.5-14.5); WBC 13.99 X1000 (4.8-10.8)
[2018-08-20 08:01] LABS: AGAP 9; BUN 19 mg/dL (8-22); CALCIUM 9.5 mg/dL (8.8-10.2); CHLORIDE 102 mmol/L (98-107); COSMO 281; CREATININE 0.7 mg/dL (0.5-0.9); ESTIMATED GFR > 60; GLUCOSE 117 mg/dL (70-104); POTASSIUM 4.5 mmol/L (3.5-5.1); SODIUM 139 mmol/L (136-145); TCO2 28 mmol/L (25-35)
[2018-08-20] MEDS: XARELTO PO SCH (08:07)
[2018-08-20] MEDS: FERROUS SULFATE PO SCH (09:55)
[2018-08-20] MEDS: SYNTHROID PO SCH (09:55)
[2018-08-20] MEDS: NORVASC PO SCH (09:55)
[2018-08-20] MEDS: PERIDEX MT SCH ×2 (09:55→20:56)
[2018-08-20] MEDS: FLONASE NAS SCH (09:56)
[2018-08-20] MEDS: PATIENT'S OWN MED INH SCH (09:56)
--- NOTE | 2018-08-20 10:18 | PROGRESS NOTE ---
DATE: 08/20/2018 SUBJECTIVE: Fabby Kapadia is a 78-year-old female, who is postoperative day 1 from a right hip closed reduction percutaneous pinning. She has no complaints today. She has no pain. She can lift her leg unassisted and has wishes to begin therapy. OBJECTIVE: She is a well-developed, well-nourished female. She is alert, oriented, and cooperative to exam. Her hematocrit is 32.2. Her hemoglobin is 10.4. Her dressing is clean, dry, intact. Her leg is neurovascularly intact. ASSESSMENT: Excellent progress after closed reduction percutaneous pinning of her right hip. PLAN: She will begin physical therapy hopefully today. She will likely go to rehab versus home on the first part of the week. cc: MD Aureliano Felton MD
[2018-08-20] MEDS: DUONEB (A & A) INH SCH ×3 (10:33→20:53)
--- NOTE | 2018-08-20 14:06 | PROGRESS NOTE ---
DATE: 08/20/2018 SUBJECTIVE: Patient's chart was reviewed. In summary, patient was admitted on 08/17/2018 with a fall resulting in a right subcapital femoral neck fracture. Prior to surgical intervention, cardiac clearance was pursued secondary to a recent positive stress test. Because of the lack of ischemic findings on EKG and negative cardiac enzymes, pursuing surgical intervention was deemed most appropriate. The patient was taken for surgery yesterday. She tolerated this quite well. This morning, patient states she feels reasonably well. Pain is controlled. She is awaiting physical therapy to began today. She denies fevers, chills, nausea, vomiting, shortness of breath, or chest pain. She does have a chronic cough which is likely secondary to underlying asthma. OBJECTIVE: Vital Signs: T-max 100.0 degrees, heart rate 61 to 88, respirations 14 to 18, blood pressure 109 to 146 over 46 to 64. General: No acute distress. Cardiovascular: Regular rate and rhythm. No significant murmurs, rubs, or gallops. Pulmonary: Clear to auscultation bilaterally. Abdomen: Soft, nontender, nondistended. Positive bowel sounds. Extremities: Moves all extremities well. No significant clubbing, cyanosis, or edema. Dermatologic: Evaluation reveals no evidence of a rash. Right hip incision is dressed. LABORATORY DATA: White blood cell count 13.99, hemoglobin 10.4, hematocrit 32.6, platelet count is 177,000. Sodium 139, potassium 4.5, chloride 102, bicarb 28, BUN 19, creatinine 0.7, glucose 117, calcium 9.5. ASSESSMENT AND PLAN: 1. Right subcapital femoral neck fracture - patient is postoperative day #1 screw fixation of the right femoral neck fracture by Dr. Hinds. Pain is currently controlled. We will continue postoperative orders including physical therapy per Dr. Hinds. We will plan to remove patient's Tarango catheter tomorrow. 2. Leukocytosis - Upon admission, patient was noted to have a considerable leukocytosis. Urinalysis revealed only red cells present. Blood cultures thus far are negative. In the setting of a chronic cough, we will check a chest x-ray. For now, we will continue gentamicin as she has multiple underlying antibiotic allergies. We will remain aware that the leukocytosis may simply may be secondary to demargination in the setting of her hip fracture. 3. Asthma - patient has longstanding disease. She is currently being treated with DuoNeb 3 times daily. Examination reveals no evidence of significant wheezing. We will continue her current medical regimen and encourage incentive spirometry and aspiration precautions. 4. Hypothyroidism - we will continue patient on Synthroid replacement. 5. Disposition - at this point, patient continues to require intermediate care in a hospital setting. We will plan discharge, likely to rehabilitation, once appropriate. cc: MD Aureliano Manzanares MD
[2018-08-20 14:12] LABS: HEMATOCRIT 33.6 % (37.0-47.0); HEMOGLOBIN 10.6 g/dL (12.0-16.0); MCH 30.4 PG (27-31); MCHC 31.5 g/dL (33-37); MCV 96.3 FL (81-99); MPV 11.1 FL (7.4-10.4); RBC 3.49 XMIL (4.2-5.4); RDW 13.1 % (11.5-14.5); WBC 17.13 X1000 (4.8-10.8)
[2018-08-20] MEDS: OXY IR PO PRN (20:56)
[2018-08-20] MEDS: COLACE PO SCH (20:57)
[2018-08-20] MEDS: SINGULAIR PO SCH (20:58)
[2018-08-21] MEDS: TYLENOL PO SCH ×5 (02:07→23:53)
[2018-08-21] MEDS: GENTAMICIN 100 MG/NS 100 MG/100 ML IVPB IV SCH ×3 (04:06→21:11)
[2018-08-21] MEDS: XARELTO PO SCH (06:16)
[2018-08-21 06:49] LABS: HEMATOCRIT 31.2 % (37.0-47.0); HEMOGLOBIN 9.8 g/dL (12.0-16.0); MCH 30.3 PG (27-31); MCHC 31.4 g/dL (33-37); MCV 96.6 FL (81-99); RBC 3.23 XMIL (4.2-5.4); RDW 13.2 % (11.5-14.5); WBC 12.06 X1000 (4.8-10.8)
--- NOTE | 2018-08-21 07:08 | Diag Imaging Result Doc PS360 ---
EXAM: CHEST-PORTABLE HISTORY: Leukocytosis/ cough TECHNIQUE: Portable chest single view COMPARISON: None. FINDINGS: The lungs are well expanded. The heart is mildly prominent. There is vascular distention. Questionable underlying infiltrates in the mid and lower lungs. No pleural effusions identified. IMPRESSION: Cardiomegaly with pulmonary edema and possibly underlying infiltrates Electronically signed by Tom Fishman 08/21/2018 7:06 AM
[2018-08-21 07:24] LABS: AGAP 9; ALB/GLOB RATIO 1.1; ALKALINE PHOSPHATASE 79 U/L (32-104); BUN 15 mg/dL (8-22); CALCIUM 9.4 mg/dL (8.8-10.2); CHLORIDE 107 mmol/L (98-107); COSMO 287; CREATININE 0.6 mg/dL (0.5-0.9); ESTIMATED GFR > 60; GLUCOSE 90 mg/dL (70-104); GOT 10 U/L (10-30); GPT 7 U/L (10-36); POTASSIUM 3.5 mmol/L (3.5-5.1); SODIUM 144 mmol/L (136-145); TCO2 28 mmol/L (25-35); TOTAL BILIRUBIN 0.92 mg/dL (0.20-1.00); TOTAL PROTEIN 5.8 g/dL (6.3-8.3)
[2018-08-21] MEDS: DUONEB (A & A) INH SCH ×3 (08:42→19:10)
[2018-08-21] MEDS: PERIDEX MT SCH ×3 (09:49→21:25)
[2018-08-21] MEDS: FERROUS SULFATE PO SCH (09:49)
[2018-08-21] MEDS: SYNTHROID PO SCH (09:49)
[2018-08-21] MEDS: NORVASC PO SCH (09:49)
[2018-08-21] MEDS: FLONASE NAS SCH (09:55)
[2018-08-21] MEDS: PATIENT'S OWN MED INH SCH (09:56)
--- NOTE | 2018-08-21 11:21 | PROGRESS NOTE ---
DATE: 08/21/2018 SUBJECTIVE: Fabby Kapadia is a 78-year-old female who is postoperative day 2 from a right hip pinning. She is doing very well, has no complaints. OBJECTIVE: She is a well-developed, well-nourished female. She is alert and cooperative with exam. Her vital signs are stable. She is afebrile. Her leg is neurovascularly intact with palpable pulses. Her calf is soft. She has no sign of DVT or infection. Her wound is clean, dry, and intact. ASSESSMENT: Stable right hip closed reduction and percutaneous pinning. PLAN: She will continue working with physical therapy and will likely go home versus rehabilitation at the first part of the week. Dr. Hinds will be returning to see her tomorrow. cc: MD Aureliano Felton MD
--- NOTE | 2018-08-21 13:28 | PROGRESS NOTE ---
DATE: 08/21/2018 SUBJECTIVE: Overall, patient states she is doing reasonably well. She is postoperative day #2 screw fixation of a right femoral neck fracture by Dr. Hinds. Yesterday, she was assisted to a chair with physical therapy. Thus far today, she has been assisted with nursing and family. The patient's pain is currently controlled. Her energy level is low, but improving. She denies fevers, chills, nausea, vomiting, shortness of breath, or chest discomfort. She continues to have an intermittent cough. OBJECTIVE: T-max 99.1 degrees, heart rate 71-89, respirations 18-20, blood pressure 133-168/42- 59. General: No acute distress. Cardiovascular: Regular rate and rhythm. No significant murmurs, rubs, or gallops. Pulmonary: Clear to auscultation anteriorly. Abdomen: Soft, nontender, nondistended. Positive bowel sounds. Extremities: Moves all extremities. No significant clubbing, cyanosis, or edema. Dermatologic: Evaluation reveals a clean, dry, and intact left hip incision. Laboratory Data: White blood cell count 12.06, hemoglobin 9.8, hematocrit 31.2, platelet count is 200,000. Sodium 144, potassium 3.5, chloride 107, bicarb 28, BUN 15, creatinine 0.6, glucose 90, calcium 9.4. Total bilirubin 0.92, total protein 3.0, albumin 2.8, alkaline phosphatase 79, AST 10, ALT 7. Chest x-ray revealed cardiomegaly with pulmonary edema and possibly underlying infiltrates. ASSESSMENT AND PLAN: 1. Right subcapital femoral neck fracture-patient is postoperative day #2 screw fixation of a right femoral neck fracture by Dr. Hinds. The patient tolerated the procedure quite well. Pain is currently well controlled. We will continue postoperative orders including physical therapy per Dr. Hinds. The patient likely will require rehabilitation at the time of discharge. 2. Leukocytosis-patient was noted to have a considerable leukocytosis upon admission. Blood cultures, thus far, are negative. Chest x-ray from yesterday suggested the possibility of an underlying infiltrate. Since admission, white blood cell count has trended downwards but has not normalized. For now, we will continue gentamicin as prescribed by Dr. Feng secondary to multiple medication allergies. We will continue to encourage incentive spirometry and deep breathing tactics. 3. Possible pneumonia-as above, chest x-ray suggests pulmonary edema versus infiltrates. We will continue gentamicin as noted. At this point, I am hesitant to diurese. We will encourage incentive spirometry and continue bronchodilators. 4. Asthma-the patient is wheeze-free on examination today. We will continue DuoNeb 3 times daily. 5. Hypothyroidism-we will continue patient on Synthroid replacement. 6. Disposition-at this point, patient continues to require senior care care in a hospital setting. We will plan discharge home once appropriate. cc: MD Aureliano Manzanares MD
[2018-08-21] MEDS: SINGULAIR PO SCH (21:12)
[2018-08-21] MEDS: COLACE PO SCH (21:12)
[2018-08-22 01:23] LABS: BASO# 0.02 X1000 (0.0-0.2); BASO% 0.2 % (0.0-0.8); EOS# 0.49 X1000 (0.0-0.7); EOS% 5.2 % (0.0-10.0); HEMOGLOBIN 9.4 g/dL (12.0-16.0); IMM GRAN# 0.03 X1000 (0.0-0.04); IMM GRAN% 0.3 % (0.0-0.5); MCH 30.3 PG (27-31); MCHC 32.4 g/dL (33-37); MCV 93.5 FL (81-99); MONO# 1.12 X1000 (0.11-0.59); MONO% 11.9 % (1.7-9.3); MPV 9.9 FL (7.4-10.4); NEUT# 6.15 X1000 (1.4-6.5); NEUT% 65.4 % (42.2-75.2); PLT 209 X1000 (130-400); RDW 13.1 % (11.5-14.5); WBC 9.41 X1000 (4.8-10.8)
[2018-08-22 01:51] LABS: AGAP 8; ALB/GLOB RATIO 1.4; ALKALINE PHOSPHATASE 73 U/L (32-104); BUN 12 mg/dL (8-22); CALCIUM 9.4 mg/dL (8.8-10.2); CHLORIDE 103 mmol/L (98-107); COSMO 277; CREATININE 0.6 mg/dL (0.5-0.9); ESTIMATED GFR > 60; GLUCOSE 98 mg/dL (70-104); GOT 10 U/L (10-30); GPT 7 U/L (10-36); MAGNESIUM 1.6 mg/dL (1.5-2.7); POTASSIUM 3.3 mmol/L (3.5-5.1); SODIUM 139 mmol/L (136-145); TCO2 28 mmol/L (25-35); TOTAL BILIRUBIN 1.16 mg/dL (0.20-1.00); TOTAL PROTEIN 5.1 g/dL (6.3-8.3)
[2018-08-22] MEDS: GENTAMICIN 100 MG/NS 100 MG/100 ML IVPB IV SCH (04:28)
[2018-08-22 05:45] LABS: HEMATOCRIT 30.7 % (37.0-47.0); HEMOGLOBIN 9.8 g/dL (12.0-16.0); MCH 30.4 PG (27-31); MCHC 31.9 g/dL (33-37); MCV 95.3 FL (81-99); MPV 10.4 FL (7.4-10.4); RBC 3.22 XMIL (4.2-5.4); RDW 13.2 % (11.5-14.5); WBC 9.07 X1000 (4.8-10.8)
[2018-08-22 06:12] LABS: AGAP 9; BUN 11 mg/dL (8-22); CALCIUM 9.6 mg/dL (8.8-10.2); CHLORIDE 103 mmol/L (98-107); COSMO 280; CREATININE 0.5 mg/dL (0.5-0.9); ESTIMATED GFR > 60; GLUCOSE 92 mg/dL (70-104); POTASSIUM 3.2 mmol/L (3.5-5.1); SODIUM 141 mmol/L (136-145); TCO2 29 mmol/L (25-35)
[2018-08-22] MEDS: XARELTO PO SCH (06:29)
[2018-08-22] MEDS: TYLENOL PO SCH ×2 (06:29→17:33)
--- NOTE | 2018-08-22 07:36 | EKG Report ---
Test Performed on : 08/22/2018 01:10:59 AM Test Reason : abnormal rhythm Blood Pressure : / mmHG Vent. Rate : 065 BPM Atrial Rate : 065 BPM P-R Int : 134 ms QRS Dur : 134 ms QT Int : 428 ms P-R-T Axes : 064 020 097 degrees QTc Int : 445 ms Normal sinus rhythm. Left bundle branch block Abnormal ECG When compared with ECG of 17-AUG-2018 13:54, (Unconfirmed) T wave inversion no longer evident in Inferior leads T wave inversion less evident in Lateral leads Confirmed by Fritz ZUNIGA, Mio ([id number]) on 08/22/2018 9:07:40 AM
[2018-08-22] MEDS ORDERED: MAGNESIUM SULFATE 4 GM/S.W.I. 4 GM/100 ML IVPB IV ONE (08:03)
[2018-08-22] MEDS ORDERED: POTASSIUM CHLORIDE 20% LIQUID PO ONE (08:03)
--- NOTE | 2018-08-22 08:28 | PROGRESS NOTE ---
DATE: 08/22/2018 SUBJECTIVE: The patient is a pleasant, 78-year-old female who is 3 days status post screw fixation right femoral neck fracture. She is currently resting comfortably. OBJECTIVE: Lower extremities: On physical examination, the patient's lower extremity dressing is intact. Calf is soft. She has active dorsiflexion, plantar flexion. LABORATORY: Her hemoglobin from yesterday was 9.4 and hematocrit is 29. IMPRESSION: Postoperative day #3, status post screw fixation right femoral neck. PLAN: At this point, patient will continue with partial weightbearing right lower extremity. Patient is stable from an orthopedic standpoint. cc: MD Aureliano Miller MD
[2018-08-22] MEDS: DUONEB (A & A) INH SCH ×3 (09:04→20:00)
--- NOTE | 2018-08-22 12:17 | Diag Imaging Result Doc PS360 ---
EXAM: XRAY HIP UNILATERAL RT 08/22/2018 HISTORY: fall TECHNIQUE: Right hip two views COMMENT: There has been internal fixation of a fracture of the right femoral neck. IMPRESSION: Postsurgical change. Electronically signed by Darien Sherwood 08/22/2018 12:15 PM
[2018-08-22] MEDS ORDERED: NS 500 ML IV ONE (12:21)
[2018-08-22] MEDS: POTASSIUM CHLORIDE 20 MEQ/SWI 20 MEQ/100 ML IVPB IV SCH ×2 (12:28→14:55)
[2018-08-22] MEDS: FLONASE NAS SCH (12:28)
[2018-08-22] MEDS: FERROUS SULFATE PO SCH (12:30)
[2018-08-22] MEDS: SYNTHROID PO SCH (12:30)
[2018-08-22] MEDS: NORVASC PO SCH (12:30)
[2018-08-22] MEDS: LASIX IV SCH ×2 (12:30→22:53)
[2018-08-22] MEDS: PERIDEX MT SCH (12:31)
[2018-08-22] MEDS: ALDACTONE PO SCH ×2 (12:31→22:53)
--- NOTE | 2018-08-22 13:48 | PROGRESS NOTE ---
DATE: 08/22/2017 SUBJECTIVE: The patient states that she is making some improvements, but it is slow, and she still has considerable pain. Report from physical therapy showed that she did quite well with her touchdown weightbearing. OBJECTIVE: Vital signs: 99.3, 68, 169/59, and 99% saturated. General: The patient is alert, oriented, conversive and appropriate. Lungs: The patient has a wet-sounding cough, but once her secretions are clear her lungs are generally clear with good air movement and no wheezing. Cardiovascular: Regular. Skin: The surgical site on the right side shows a moderate-size subcutaneous hematoma with ecchymosis, he is not really tender or firm. It may just be postoperative change. LABORATORY: White cell count 9.4, hemoglobin 9.4, potassium slightly low at 3.3, and magnesium is 1.6. ASSESSMENT AND PLAN: 1. The patient's femoral neck fracture has been repaired. Shortly, after I left the hospital, I got a call from the nursing staff stating that the patient had somehow loosened all of her tethers in the bed and tried to get up and fell. X-ray did not show any new injury on the hip. We will continue to monitor the patient's physical therapy progress, and provide appropriate levels of pain control. 2. The patient's leukocytosis has resolved. I had treated her empirically for urinary tract infection with gentamicin given the fact that she had been instrumented several times. I plan to discontinue the gentamicin and monitor her fever and progress. 3. Chest x-ray revealed cardiomegaly with pulmonary edema and possible underlying infiltrates. She has no history of this other than the mild cardiomegaly. I have discontinued the gentamicin as above. I do not think she has really signs or symptoms of pneumonia, although she does have chronic lung disease. We will continue to monitor this. 4. Overall respiratory status is stable. 5. Disposition will be to rehabilitation. We are seeking placement at [facility]. cc: Aureliano Feng MD
[2018-08-22] MEDS: PATIENT'S OWN MED INH SCH (18:38)
[2018-08-22] MEDS: SINGULAIR PO SCH (22:53)
[2018-08-22] MEDS: ARICEPT PO SCH (22:53)
[2018-08-23] MEDS: COLACE PO SCH (02:00)
[2018-08-23] MEDS: TYLENOL PO SCH ×2 (02:01→11:21)
[2018-08-23] MEDS: PERIDEX MT SCH ×2 (02:01→10:58)
[2018-08-23] MEDS: ARICEPT PO SCH (02:01)
[2018-08-23] MEDS: SINGULAIR PO SCH (02:02)
[2018-08-23] MEDS: ALDACTONE PO SCH (02:02)
[2018-08-23 06:13] LABS: AGAP 10; BUN 13 mg/dL (8-22); CALCIUM 9.5 mg/dL (8.8-10.2); CHLORIDE 99 mmol/L (98-107); COSMO 282; CREATININE 0.6 mg/dL (0.5-0.9); ESTIMATED GFR > 60; GLUCOSE 105 mg/dL (70-104); POTASSIUM 3.6 mmol/L (3.5-5.1); SODIUM 141 mmol/L (136-145); TCO2 32 mmol/L (25-35)
[2018-08-23 06:36] LABS: BASO# 0.03 X1000 (0.0-0.2); BASO% 0.3 % (0.0-0.8); EOS# 0.63 X1000 (0.0-0.7); EOS% 6.8 % (0.0-10.0); HEMATOCRIT 34.5 % (37.0-47.0); HEMOGLOBIN 11.1 g/dL (12.0-16.0); LYMPH# 1.29 X1000 (1.2-3.4); MCH 30.7 PG (27-31); MCHC 32.2 g/dL (33-37); MCV 95.6 FL (81-99); MONO# 0.89 X1000 (0.11-0.59); MONO% 9.7 % (1.7-9.3); MPV 12.5 FL (7.4-10.4); NEUT# 6.37 X1000 (1.4-6.5); NEUT% 69.2 % (42.2-75.2); PLT 207 X1000 (130-400); RBC 3.61 XMIL (4.2-5.4); RDW 13.4 % (11.5-14.5); WBC 9.21 X1000 (4.8-10.8)
[2018-08-23] MEDS ORDERED: POTASSIUM CHLORIDE 20% LIQUID PO ONE (08:05)
[2018-08-23] MEDS ORDERED: ALDACTONE PO SCH (09:00)
--- NOTE | 2018-08-23 09:33 | DISCHARGE SUMMARY ---
ADMISSION DATE: 08/17/2018 DISCHARGE DATE: 08/23/2018 DISCHARGE DIAGNOSES: 1. Fall from standing height to the ground. 2. Right subcapital femoral neck fracture. 3. Hypertension. 4. Hypothyroidism. 5. B12 deficiency. 6. Chronic persistent asthma not in exacerbation. 7. Chronic allergic rhinitis. 8. Mild cognitive impairment so stated. CONSULTATION: Gabriella Persaud OPERATIVE PROCEDURE: Pinning of right hip with intramedullary screws. HOSPITAL COURSE: The patient fell at home and was transported to [facility]. She was then transferred to [facility] under my care the following day. The patient was delayed nearly 48 hours in having her surgery, but tolerated the procedure well. Three screws were placed per Dr. Hinds with good positioning. She had no immediate operative complications. Postoperatively the patient spiked a fever to 102. We never located a source for that fever, but I suspect, having reviewed her history, that it was some form of bladder infection or irritation. She had apparently been instrumented approximately 5 times with [address] a Tarango catheter all of which were unsuccessful. She had blood from the urethra and but was otherwise asymptomatic. She was started on empiric gentamicin because she is allergic to so many antibiotics. She tolerated those well and did not have any further fever. This was discontinued prior to discharge. The patient did well with physical therapy. She did have an additional fall at the hospital when she tried to get out of bed herself. The bed alarm went off, but it was too late. Follow-up hip x-ray showed no further damage. The patient's asthma was quiescent throughout her hospitalization. The patient had undergone a recent cardiac workup and her digital intern was consulted, but no significant changes were made in medication. She was approved for surgery. The patient expressed a preference for [facility] and arrangements were made. She should be scheduled for transfer via ambulance today. There are no new medications. DISCHARGE INSTRUCTIONS: She is to follow up approximately 2 weeks after discharge from rehab with me. cc: Aureliano Feng MD
[2018-08-23] MEDS: DUONEB (A & A) INH SCH (10:06)
[2018-08-23] MEDS: FLONASE NAS SCH (10:57)
[2018-08-23] MEDS: NORVASC PO SCH (10:58)
[2018-08-23] MEDS: LASIX IV SCH (10:58)
[2018-08-23] MEDS: SYNTHROID PO SCH (10:58)
[2018-08-23] MEDS: FERROUS SULFATE PO SCH (10:58)
[2018-08-23 11:39] VITALS: BP 150/72
--- NOTE | 2018-08-23 13:35 | CARDIOLOGY PROGRESS NOTE ---
DATE: 08/23/2018 CHIEF COMPLAINT: Pain in the hip, abnormal EKG. SUBJECTIVE: Mrs. Kapadia is feeling a little better. We gave her some Lasix and potassium supplements yesterday. This morning, she is seemingly in a better condition breathing more comfortably. Friend is at the bedside. She denies any chest pain. PHYSICAL EXAMINATION: Vital signs: Blood pressure today 162/60, temperature 97.6, pulse 93, respirations 20. General: She is awake, alert, oriented, no distress. HEENT: Unremarkable. Chest: Clear to auscultation and percussion. Heart: Sounds regular and rhythmic. No gallop or murmur. Abdomen: Her abdomen is nontender, soft. No masses, no hepatomegaly. Extremities: Good pulse, no peripheral edema. Neurologic: Follow commands, moves all 4 extremities. IMPRESSION: 1. Patient who has abnormal electrocardiogram. 2. Reported abnormal myocardial perfusion stress test. 3. Fracture of right hip status post screw fixation of the right femoral neck on 08/19. Today will be the 4th postoperative day. 4. Congestive heart failure. This is probably volume overload, diastolic dysfunction, because of perioperative fluid management. 5. History of hypertension. RECOMMENDATION: 1. At this time, we will keep her on low-dose spironolactone. I will go ahead and add an angiotensin receptor sd if this patient is capable of tolerating that type of medicine. 2. Otherwise, we will observe her. The patient may actually be in a situation where she can be discharged to the rehab facility. 3. We will discuss with Dr. Feng. I will order 1 extra dose of potassium supplement because her potassium is marginal at this time. Her BUN is 13, creatinine 0.6, sodium 141, potassium 3.6. Further recommendations will be forthcoming. cc: MD Aureliano Lima MD
== END 2018-08-23 13:09 | DRG 482 ==
LOC: P.ED 13:21 → P.MEDSURG 13:22 → SUATTDRO 13:22 → SUPCPDRO 13:22 → 4N 21:15
PROVIDERS: ADMIT Internal Medicine; ATTEND Internal Medicine
CPT/HCPCS: 71010; 71045; 73502; 76000; 80048; 80053; 81001; 82550; 83735; 84484; 85025; 85027; 85610; 87040; 93005; 93010; 94640; 94761; 96361; 96374; 96375; 97110; 97116; 97162; 97530; 99285; A9270; J1100; J1170; J1580; J1650; J1940; J2270; J2370; J2405; J3010; J3370; J3475; J3480; J7030; J7040

== ENCOUNTER 2018-09-04 20:03 | Inpatient (IN) ==
[2018-09-04 20:46] LABS: BASO# 0.02 X1000 (0.0-0.2); BASO% 0.1 % (0.0-0.8); EOS# 0.01 X1000 (0.0-0.7); HEMATOCRIT 35.9 % (37.0-47.0); HEMOGLOBIN 11.8 g/dL (12.0-16.0); IMM GRAN# 0.05 X1000 (0.0-0.04); IMM GRAN% 0.2 % (0.0-0.5); LYMPH# 1.44 X1000 (1.2-3.4); LYMPH% 6.5 % (20.5-51.1); MCH 30.6 PG (27-31); MCHC 32.9 g/dL (33-37); MONO# 1.53 X1000 (0.11-0.59); MONO% 6.9 % (1.7-9.3); MPV 9.8 FL (7.4-10.4); NEUT# 19.23 X1000 (1.4-6.5); NEUT% 86.3 % (42.2-75.2); PLT 381 X1000 (130-400); RBC 3.86 XMIL (4.2-5.4); RDW 13.7 % (11.5-14.5); WBC 22.28 X1000 (4.8-10.8)
--- NOTE | 2018-09-04 21:02 | Diag Imaging Result Doc PS360 ---
CHEST-PORTABLE - 09/04/2018 INDICATION: aspiration COMPARISON: 08/21/2018 FINDINGS: There is a right lower lobe infiltrate similar to prior. The pulmonary vascular congestion and bilateral perihilar infiltrate/edema have improved since prior. No pneumothorax or significant pleural effusion. Heart size is normal. IMPRESSION: Persistent right lower lobe infiltrate consistent with aspiration or pneumonia. Improved pulmonary edema. Electronically signed by Terry Nunn 09/04/2018 8:59 PM
[2018-09-04 21:05] LABS: AGAP 11; ALB/GLOB RATIO 1.6; ALBUMIN 4.1 g/dL (3.5-5.0); ALKALINE PHOSPHATASE 132 U/L (32-104); BUN 13 mg/dL (8-22); CALCIUM 10.1 mg/dL (8.8-10.2); CHLORIDE 99 mmol/L (98-107); COSMO 272; CREATININE 0.7 mg/dL (0.5-0.9); ESTIMATED GFR > 60; GLUCOSE 134 mg/dL (70-104); GOT 14 U/L (10-30); GPT 8 U/L (10-36); POTASSIUM 4.4 mmol/L (3.5-5.1); SODIUM 135 mmol/L (136-145); TCO2 25 mmol/L (25-35); TOTAL BILIRUBIN 1.85 mg/dL (0.20-1.00); TOTAL PROTEIN 6.7 g/dL (6.3-8.3)
[2018-09-04 21:13] LABS: URINE SOURCE CLEAN CATCH
[2018-09-04 21:19] LABS: BILIRUBIN URINE NEGATIVE (NEGATIVE); BLOOD URINE TRACE (NEGATIVE); COLOR YELLOW; GLUCOSE URINE NEGATIVE (NEGATIVE); KETONE URINE NEGATIVE (NEGATIVE); LEUKOCYTES URINE SMALL (NEGATIVE); NITRITE URINE NEGATIVE (NEGATIVE); PH URINE 5.5; PROTEIN URINE TRACE mg/dL (NEGATIVE); SP GRAVITY URINE 1.014; TURBIDITY URINE CLEAR (CLEAR); UROBILINOGEN URINE NORMAL (NORMAL)
[2018-09-04 21:21] LABS: UR EPITHELIAL CELLS <10 /HPF (<10); URINE BACTERIA NEGATIVE /HPF; URINE RBC <10 /HPF (<10); URINE WBC <10 /HPF (<10)
[2018-09-04] MEDS ORDERED: NS 1,000 ML IV ONE (21:39)
[2018-09-04] MEDS ORDERED: VANCOMYCIN 1 GM/NS 1 GM/250 ML IVPB IV ONE (21:39)
--- NOTE | 2018-09-05 00:03 | HISTORY AND PHYSICAL ---
PRIMARY CARE PHYSICIAN: Dr. Feng. CHIEF COMPLAINT: Fever. HISTORY OF PRESENTING ILLNESS: The patient is a 78-year-old female with a history of hypertension, hypothyroidism and COPD, who apparently was at [facility] for rehabilitation after having a right hip repair. The patient states that while she was there she developed a temperature of 102, and she was coughing. She had chest x-ray that showed pneumonia and subsequently she was brought to the emergency. In the ED she was evaluated and due to her presenting symptoms it was thought that she would need admission for further management. At the time of my examination she denied any headache, nausea, vomiting, diarrhea, chest pain, hemoptysis or melena, but complained of cough, fever, and not feeling well. PAST MEDICAL HISTORY: Includes hypertension, hypothyroidism, COPD. PAST SURGICAL HISTORY: Right hip surgery, cataract surgery, hysterectomy, sinus surgery, appendectomy, left breast biopsy, tonsillectomy. ALLERGIES: Penicillin, Bactrim, Biaxin, Aclovate, Keflex, Ceclor, Levaquin, aspirin. SOCIAL HISTORY: She denies any history of smoking, alcohol or illicit drug use. She is currently at [facility]. FAMILY HISTORY: Positive for coronary disease in father. REVIEW OF SYSTEMS: Fourteen point review of systems is as in HPI, other systems negative. PHYSICAL EXAMINATION: GENERAL: Cooperative, friendly female. She is resting more comfortably now. VITAL SIGNS: Temperature 98.4 degrees, pulse 78, respiration 18, blood pressure 141/68, she is saturating at 90% on room air. HEENT: Atraumatic and normocephalic. Extraocular movements are intact. PERRLA. NECK: No masses. CHEST: Bibasilar rales. CARDIOVASCULAR: Regular rate and rhythm. ABDOMEN: Soft. Positive bowel sounds. EXTREMITIES: No edema. NEUROLOGIC: She is awake, alert, and oriented x3. GENITOURINARY: No bladder distention. SKIN: Warm. LABORATORIES AND STUDIES: WBC is 22.28, hemoglobin is 11.8, hematocrit is 35.9, platelets 381,000. Sodium 135, potassium 4.4, chloride 99, CO2 is 25, BUN is 13, creatinine is 2.7, glucose is 134. Chest x-ray shows right a lower lobe infiltrate consistent with pneumonia. ASSESSMENT: The patient is a 78-year-old female with a history of hypertension, hypothyroidism, and chronic obstructive pulmonary disease who had presented to the emergency department with complaint of having fevers with a temperature 102. She was also having cough and not feeling well. She was evaluated in the emergency department. She had imaging done which did show right lower lobe pneumonia. Subsequently she will need admission for further management. ASSESSMENT: 1. Right lower lobe pneumonia. 2. Hypertension. 3. Hypothyroidism. PLAN: 1. We will admit the patient to medical floor with telemetry. 2. We will check blood cultures and start the patient on IV antibiotics. 3. We will monitor her blood pressure and resume all home medications. 4. We will put patient on DVT prophylaxis with SCDs. 5. We will continue to follow, reassess and make further recommendation based on the patient's clinical course. cc: Mac Guy MD
[2018-09-05] MEDS: DUONEB (A & A) INH SCH ×4 (00:35→20:00)
[2018-09-05] MEDS: INVANZ 1 GM/NS 1 GM/50 ML IVPB IV SCH (00:53)
[2018-09-05] MEDS: SYNTHROID PO SCH (06:34)
--- NOTE | 2018-09-05 07:15 | Diag Imaging Result Doc PS360 ---
EXAM: CT ANGIOGRM PULMONARY ARTERIES 09/04/2018 HISTORY: Hip fracture, elevated D-dimer TECHNIQUE: This exam was performed using automated exposure control, adjustment of mA or kV according to patient size, and/or use of iterative reconstruction technique. COMMENT: 3-D MIPS were performed. There are no previous studies available for comparison. There are no filling defects in the pulmonary arteries. There are atherosclerotic calcifications in the thoracic aorta and coronary arteries. There is no evidence of dissection or aneurysm. There is considerable secretions ordered debris present in the lower lobe bronchi particularly on the left. There are patchy opacities throughout both lower lobes. There is also patchy opacity in the inferior lingula and right middle lobe. The visualized portion of the stomach is not distended, however there is fluid within the distal esophagus. There is a hiatal hernia. There is no evidence of acute disease in the visualized regional skeleton. IMPRESSION: Bronchopneumonia with probable reflux and aspiration. No evidence of pulmonary emboli. Electronically signed by Darien Sherwood 09/05/2018 7:13 AM
[2018-09-05 07:55] LABS: BASO# 0.03 X1000 (0.0-0.2); BASO% 0.2 % (0.0-0.8); EOS# 0.01 X1000 (0.0-0.7); EOS% 0.1 % (0.0-10.0); HEMATOCRIT 32.9 % (37.0-47.0); HEMOGLOBIN 10.4 g/dL (12.0-16.0); IMM GRAN# 0.04 X1000 (0.0-0.04); IMM GRAN% 0.2 % (0.0-0.5); LYMPH# 1.44 X1000 (1.2-3.4); LYMPH% 7.6 % (20.5-51.1); MCH 29.9 PG (27-31); MCHC 31.6 g/dL (33-37); MCV 94.5 FL (81-99); MONO# 1.63 X1000 (0.11-0.59); MONO% 8.6 % (1.7-9.3); MPV 9.9 FL (7.4-10.4); NEUT# 15.71 X1000 (1.4-6.5); NEUT% 83.3 % (42.2-75.2); PLT 322 X1000 (130-400); RBC 3.48 XMIL (4.2-5.4); RDW 13.7 % (11.5-14.5); WBC 18.86 X1000 (4.8-10.8)
[2018-09-05 08:18] LABS: AGAP 8; BUN 9 mg/dL (8-22); CALCIUM 9.5 mg/dL (8.8-10.2); CHLORIDE 104 mmol/L (98-107); COSMO 273; CREATININE 0.6 mg/dL (0.5-0.9); ESTIMATED GFR > 60; GLUCOSE 104 mg/dL (70-104); POTASSIUM 4.1 mmol/L (3.5-5.1); SODIUM 137 mmol/L (136-145); TCO2 25 mmol/L (25-35)
--- NOTE | 2018-09-05 09:05 | EKG Report ---
Test Performed on : 09/04/2018 8:36:34 PM Test Reason : tachycardia Blood Pressure : / mmHG Vent. Rate : 073 BPM Atrial Rate : 073 BPM P-R Int : 134 ms QRS Dur : 140 ms QT Int : 440 ms P-R-T Axes : 045 -21 102 degrees QTc Int : 484 ms Normal sinus rhythm. Left bundle branch block Abnormal ECG When compared with ECG of 22-AUG-2018 01:10, No significant change was found Unconfirmed Result
[2018-09-05] MEDS ORDERED: VENTOLIN HFA INH PRN (09:32)
--- NOTE | 2018-09-05 10:00 | PROGRESS NOTE ---
DATE: 09/05/2018 SUBJECTIVE: The patient was admitted last night with pneumonia from rehabilitation. History was reviewed. She is admitted by the hospitalist team. The patient states that her breathing is okay. She still has a rattly cough. She has had no further fever since her 102 temperature spike last night. OBJECTIVE: Vital Signs: Temperature 98.4, pulse 77, respiratory rate 16, blood pressure 121/49, 99% saturated on 2 L nasal cannula. General: The patient has a rattly cough. Lungs: Remarkably clear particularly in the upper lobes. There is a little bit of crackling in the left base. This clears somewhat with cough, but is still present even after that. Cardiovascular: Regular. Abdomen: Shows bowel sounds are present. Extremities: No peripheral edema. LABORATORIES: Reviewed. ASSESSMENT AND PLAN: 1. The patient likely has a pneumonia. Because of her multiple allergies, she is on ertapenem. We will continue with this antibiotic. It is going to be difficult to find something p.o. to put her on. 2. We will consult Physical Therapy. I would love to get her back to [facility] before weeks' end if we can get an appropriate antibiotic and have her stabilized enough. 3. Other home medications will be reinstituted. 4. I have added calcitonin nasal spray for bone healing and strength. 5. The patient had a vague complaint of some back pain that seemed to be in the left lower back and is probably related to being bed-bound, except for physical therapy. I am going to give her a little bit of muscle relaxant, particularly at night to see if that will help things. cc: Aureliano Feng MD
[2018-09-05] MEDS: SOLU-MEDROL IV SCH ×3 (10:11→20:27)
[2018-09-05] MEDS: NORVASC PO SCH (10:13)
[2018-09-05] MEDS: FORTICAL NAS SCH (11:29)
[2018-09-05] MEDS: ROBAXIN PO SCH ×2 (18:17→20:24)
[2018-09-05] MEDS: SINGULAIR PO SCH (20:24)
[2018-09-06] MEDS: INVANZ 1 GM/NS 1 GM/50 ML IVPB IV SCH (00:44)
[2018-09-06] MEDS: DUONEB (A & A) INH SCH ×4 (03:30→20:00)
[2018-09-06] MEDS: SYNTHROID PO SCH (06:01)
--- NOTE | 2018-09-06 08:53 | PROGRESS NOTE ---
DATE: 09/06/2018 SUBJECTIVE: The patient has no complaints. Apparently, yesterday, when physical therapy came around, she was irritated with almost everything that they did and basically refused to participate. She was instructed that this is not an option as she will have to get up and perform with physical therapy. Her appetite has been reasonable. She still has an intermittent rattly cough but is otherwise breathing well. OBJECTIVE: Vital Signs: 98.6, 64, 15, 122/68, 100% saturated on nasal cannula. Physical Examination: The patient is alert, oriented, and operating at baseline. She is appropriate. Lungs are clear in the upper lobes. There is a little bit of rattling in the lower lobes which seemed to clear somewhat with coughing. Cardiovascular is regular. Extremities: No peripheral edema. Laboratory: None was drawn today. ASSESSMENT AND PLAN: 1. The patient is being treated with Invanz intravenously. Because of her multiple allergies, there are not really a lot of good options for oral treatment. I would love to convert her over to oral and get her moved back to [facility] tomorrow. We can likely send her home on doxycycline and azithromycin but those are really the only options that we have, given her allergy history. 2. Physical therapy will return today and the patient has been advised that it is not an option to refuse. She will have to get up and move. 3. Home medications have been reinstituted. 4. Calcitonin nasal spray was added. cc: Aureliano Feng MD
[2018-09-06] MEDS: FLONASE NAS SCH (09:41)
[2018-09-06] MEDS: FORTICAL NAS SCH (09:42)
[2018-09-06] MEDS: CLARITIN PO SCH (09:43)
[2018-09-06] MEDS: SOLU-MEDROL IV SCH ×2 (09:43→21:02)
[2018-09-06] MEDS: NORVASC PO SCH (09:43)
[2018-09-06] MEDS: PATIENT'S OWN MED INH SCH (12:44)
[2018-09-06] MEDS: ROBAXIN PO SCH (21:02)
[2018-09-06] MEDS: DOXYCYCLINE PO SCH (21:02)
[2018-09-06] MEDS: SINGULAIR PO SCH (21:02)
[2018-09-07] MEDS: INVANZ 1 GM/NS 1 GM/50 ML IVPB IV SCH (01:29)
[2018-09-07] MEDS: DUONEB (A & A) INH SCH ×2 (03:45→09:28)
[2018-09-07] MEDS: SYNTHROID PO SCH (06:27)
[2018-09-07] MEDS ORDERED: MONUROL PO ONE (08:34)
[2018-09-07] MEDS: DOXYCYCLINE PO SCH (08:44)
[2018-09-07] MEDS: CLARITIN PO SCH (08:44)
[2018-09-07] MEDS: NORVASC PO SCH (08:44)
[2018-09-07] MEDS: SOLU-MEDROL IV SCH (08:44)
[2018-09-07] MEDS: FLONASE NAS SCH (08:45)
[2018-09-07] MEDS: FORTICAL NAS SCH (08:45)
[2018-09-07] MEDS: PATIENT'S OWN MED INH SCH (08:46)
--- NOTE | 2018-09-07 09:16 | DISCHARGE SUMMARY ---
ADMISSION DATE: 09/04/2018 DISCHARGE DATE: DISCHARGE DIAGNOSES: 1. Cough. 2. Acute bronchitis. 3. Urinary tract infection. 4. Chronic persistent asthma. 5. Dementia without behavioral disturbance. 6. Status post right hip fracture. HOSPITAL COURSE: This 78-year-old white female was admitted from the [facility]. She was receiving rehabilitation for a right hip fracture there and was progressing well. The patient began to cough and run fever, and [facility], but unfortunately her profile of multiple allergies to medications had them frightened, and she was transferred to [place] for treatment. The Hospitalist team admitted the patient overnight, and then started her on ertapenem as well as IV steroids. She responded magnificently to this, and did not really have any more fever. Her cough had improved as well. We kept her on the ertapenem and then added doxycycline. This is one of the few antibiotics that she is not allergic to. Also upon admission, her urine showed urinary tract infection with Escherichia coli and Proteus mirabilis, which was only resistant to nitrofurantoin. She was given a single dose of Monurol prior to discharge, and she will continue her doxycycline for an additional 10 days. The patient really did not have significant wheeze by the time I saw her, and stated that she was moving air well. The day prior to discharge, she stated that she "felt much better," and was actively desirous of further physical therapy for her hip. The patient is discharged to back to the rehabilitation facility with essentially the same medication regimen that she had before, with the only additions being doxycycline for 10 days, and a Medrol Dosepak to taper her down. cc: Aureliano Feng MD
[2018-09-07 11:21] VITALS: BP 129/54
== END 2018-09-07 16:19 | DRG 194 ==
LOC: SUPCPDRO → ED 20:03 → SUATTDRO 23:46 → 3N 23:46
PROVIDERS: ADMIT Internal Medicine; ATTEND Internal Medicine
CPT/HCPCS: 71010; 71045; 71275; 80048; 80053; 81001; 84484; 85025; 85379; 87077; 87088; 87186; 93005; 94640; 94760; 94761; 96360; 96361; 97116; 97162; 97530; 99285; A9270; J1335; J2920; J3370; J7030; Q9967